=== PATIENT | male | born 1995 | race Caucasian/White ===

== ENCOUNTER 2019-07-08 08:25 | Emergency (ER) | payer SELFPAY ==
[~2019-07-08] VITALS: Ht 165.1 cm; Wt 81.2 kg
[2019-07-08 08:28] VITALS: BP 127/74
[2019-07-08 09:09] VITALS: BP 127/65
--- NOTE | 2019-07-08 09:10 | NUR ---
Stable Low grade fever Minimal pain MD has seen. Given script and Dc'd home. To exit.
== END 2019-07-08 09:10 | disposition home or self-care (01) ==
LOC: MED 08:25
DX: B34.9 Viral infection, unspecified (principal); R51 Headache
CPT/HCPCS: 99283

== ENCOUNTER 2020-02-24 09:22 | Emergency (ER) | payer OTHER, BC ==
[~2020-02-24] VITALS: Ht 167.6 cm; Wt 86.6 kg
[2020-02-24 09:31] VITALS: BP 140/73
[2020-02-24 10:48] VITALS: BP 140/73
== END 2020-02-24 10:48 | disposition home or self-care (01) ==
LOC: MED 09:22
DX: S10.93XA Contusion of unspecified part of neck, initial encounter (principal); S20.221A Contusion of right back wall of thorax, initial encounter; M62.830 Muscle spasm of back; V89.2XXA Person injured in unspecified motor-vehicle accident, traffic, initial encounter; Y93.89 Activity, other specified; Y92.89 Other specified places as the place of occurrence of the external cause; Y99.8 Other external cause status
CPT/HCPCS: 71101; 72040; 99284

== ENCOUNTER 2020-03-03 11:26 | Emergency (ER) | payer BC, OTHER ==
[~2020-03-03] VITALS: Ht 167.6 cm; Wt 88.6 kg
[2020-03-03 11:31] VITALS: BP 137/74
--- NOTE | 2020-03-03 11:40 | NUR ---
PT AMBULATED TO BED 12.
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
--- NOTE | 2020-03-03 12:22 | NUR ---
DR. ANTHONY AT BEDSIDE.
[2020-03-03 12:30] VITALS: BP 137/74
== END 2020-03-03 12:31 | disposition home or self-care (01) ==
LOC: MED 11:26
DX: S16.1XXA Strain of muscle, fascia and tendon at neck level, initial encounter (principal); W64.XXXA Exposure to other animate mechanical forces, initial encounter; Y93.89 Activity, other specified; Y92.89 Other specified places as the place of occurrence of the external cause; Y99.8 Other external cause status
CPT/HCPCS: 99282

== ENCOUNTER 2021-11-07 19:00 | Emergency (ER) | payer BC ==
[~2021-11-07] VITALS: Ht 167.6 cm; Wt 95.3 kg
[2021-11-07 19:15] VITALS: BP 127/79
--- NOTE | 2021-11-07 19:18 | NUR ---
TO LOBBY A/W BED AMBULATORY
--- NOTE | 2021-11-07 21:31 | NUR ---
Called first time- no show in Lobby and outside.
--- NOTE | 2021-11-07 21:47 | NUR ---
PATIENT LEFT WITHOUT BEING SEEN BY DR. Yu. NO FURTHER CARE PROVIDED FOR PATIENT.
== END 2021-11-07 21:31 | disposition left against medical advice (07) ==
LOC: MED 19:00
DX: M79.10 Myalgia, unspecified site (principal); Z53.21 Procedure and treatment not carried out due to patient leaving prior to being seen by health care provider

== ENCOUNTER 2021-12-26 18:49 | Emergency (ER) | payer BC ==
[~2021-12-26] VITALS: Ht 167.6 cm; Wt 97.5 kg
[2021-12-26 19:14] VITALS: BP 143/81
--- NOTE | 2021-12-26 19:21 | NUR ---
Patient waited outside.
--- NOTE | 2021-12-26 19:21 | NUR ---
COVID-19 and flu swabs collected and sent to lab.
--- NOTE | 2021-12-26 19:31 | NUR ---
AVTAR MCDONNELL examining patient.
[2021-12-26] MEDS ORDERED: IBUP-2213 PO (19:44)
[2021-12-26] MEDS ORDERED: BENZ-300 PO (19:44)
[2021-12-26] MEDS ORDERED: PROM118S5 PO (19:44)
[2021-12-26 21:07] VITALS: BP 138/81
--- NOTE | 2021-12-26 21:07 | NUR ---
Patient discharged with v/s stable. Written and verbal after care instructions given and explained. Patient alert, oriented and verbalized understanding of instructions. Ambulatory with steady gait. All questions addressed prior to discharge. ID band removed. Patient advised to follow up with PMD. Rx of Ibuprofen, Cepacel sore lozenge and Promethazine given. Patient educated on indication of medication including possible reaction and side effects. Opportunity to ask questions provided and answered.
[2021-12-26] MEDS ORDERED: NIRM1TAB PO (22:09)
== END 2021-12-26 21:07 | disposition home or self-care (01) ==
LOC: MED 18:49
DX: U07.1 COVID-19 (principal)
CPT/HCPCS: 99283

== ENCOUNTER 2022-05-30 14:31 | Emergency (ER) | payer BC ==
[~2022-05-30] VITALS: Ht 167.6 cm; Wt 100.7 kg
[~2022-05-30 14:31] MED LIST: BENZ-300 PO; IBUP-2213 PO; NIRM1TAB PO; PROM118S5 PO
--- NOTE | 2022-05-30 15:10 | NUR ---
C/O COUGH, SORE THROAT, PALM, BODY ACHES X 2 DAYS.
[2022-05-30 15:11] VITALS: BP_SYST 127; BP_SYST 136; BP_DIAS 100; BP_DIAS 102
--- NOTE | 2022-05-30 15:17 | NUR ---
CLU, COVID SWABS DONE.
[2022-05-30] MEDS ORDERED: ACET-10509 PO (16:12)
[2022-05-30] MEDS ORDERED: PROM118S5 PO (16:12)
[2022-05-30 16:40] VITALS: BP 136/100
--- NOTE | 2022-05-30 16:40 | NUR ---
Patient discharged with v/s stable. Written and verbal after care instructions given and explained. Patient alert, oriented and verbalized understanding of instructions. Ambulatory with steady gait. All questions addressed prior to discharge. ID band removed. Patient advised to follow up with PMD. Rx of tylenol, promethazine (sent) given. Patient educated on indication of medication including possible reaction and side effects. Opportunity to ask questions provided and answered.
== END 2022-05-30 16:40 | disposition home or self-care (01) ==
LOC: MED 14:31
DX: J06.9 Acute upper respiratory infection, unspecified (principal); Z20.822 Contact with and (suspected) exposure to COVID-19; Z79.899 Other long term (current) drug therapy
CPT/HCPCS: 99283

== ENCOUNTER 2024-01-13 14:41 | Emergency (ER) | payer OTHER ==
[~2024-01-13] VITALS: Ht 165.1 cm; Wt 99.8 kg
[~2024-01-13 14:41] MED LIST changes: +ACET-10509 PO
[2024-01-13 14:53] VITALS: BP 132/77; PULSE 79; RESP 17; TEMP 98; O2SAT 96
[2024-01-13] MEDS ORDERED: PSEU120T23 PO (16:12)
[2024-01-13] MEDS ORDERED: ALBU0.0912 IH (16:12)
[2024-01-13 16:36] LABS: FLU A ANTIGEN negative (NEGATIVE); FLU B ANTIGEN NEGATIVE (NEGATIVE)
== END 2024-01-13 16:18 | disposition home or self-care (01) ==
LOC: MED 14:41
DX: B34.9 Viral infection, unspecified (principal); R03.0 Elevated blood-pressure reading, without diagnosis of hypertension; Z20.822 Contact with and (suspected) exposure to COVID-19; Z79.1 Long term (current) use of non-steroidal anti-inflammatories (NSAID); Z79.2 Long term (current) use of antibiotics; Z79.899 Other long term (current) drug therapy
CPT/HCPCS: 71046; 99284